=== PATIENT | female | born 1980 | race Caucasian/White ===

== ENCOUNTER → 2017-09-24 | Outpatient (CLI) | payer BC ==
[2017-09-24 18:21] LABS: ALT 31 U/L (9-52); AST 35 U/L (14-36); Albumin 4.1 g/dL (3.5-5.0); Alkaline Phosphatase 34 U/L (38-126); Anion Gap 9 mmol/L; Basophils % (A) 1 %; Blood Urea Nitrogen 20 mg/dL (7-17); Calcium 9.9 mg/dL (8.4-10.2); Carbon Dioxide 26 mmol/L (22-30); Chloride 105 mmol/L (98-107); Cholesterol 143 mg/dL (<200); Eosinophils # (A) 0.1 k/uL (0-0.7); Eosinophils % (A) 3 %; Glucose 82 mg/dL (74-99); HCT 42.4 % (34.0-46.0); HDL Cholesterol 74 mg/dL (40-60); HGB 13.5 gm/dL (11.4-16.0); LDL Cholesterol,Calculated 61 mg/dL (0-99); Lymphocytes # (A) 1.4 k/uL (1.0-4.8); Lymphocytes % (A) 43 %; MCH 29.5 pg (25.0-35.0); MCHC 31.8 g/dL (31.0-37.0); MCV 92.8 fL (80.0-100.0); Mean Platelet Volume 8.3; Monocytes # (A) 0.2 k/uL (0-1.0); Monocytes % (A) 6 %; Neutrophils # (A) 1.5 k/uL (1.3-7.7); Neutrophils % (A) 45 %; Platelet Count 185 k/uL (150-450); RBC 4.58 m/uL (3.80-5.40); RDW 13.2 % (11.5-15.5); Sodium 140 mmol/L (137-145); Total Bilirubin 0.8 mg/dL (0.2-1.3); Triglycerides 39 mg/dL (<150); WBC 3.3 k/uL (3.8-10.6)
[2017-09-24 18:39] LABS: T4, Free (Free Thyroxine) 1.03 ng/dL (0.78-2.19)
[2017-09-24 18:41] LABS: Potassium 4.1 mmol/L (3.5-5.1)
== END | disposition home or self-care (01) ==
LOC: MMGSC 15:13
PROVIDERS: ATTEND Family Medicine
DX: Z00.00 Encounter for general adult medical examination without abnormal findings (principal)
CPT/HCPCS: 36415; 80053; 80061; 84439; 84443; 85025